=== PATIENT | female | born 1940 | race Caucasian/White ===

== ENCOUNTER → 2018-03-29 | Outpatient (CLI) | payer MEDICARE, BC ==
[2018-03-29 16:38] LABS: Basophils % (A) 1 %; Eosinophils # (A) 0.1 k/uL (0-0.7); Eosinophils % (A) 2 %; HCT 45.4 % (34.0-46.0); HGB 14.7 gm/dL (11.4-16.0); Lymphocytes % (A) 28 %; MCH 29.9 pg (25.0-35.0); MCHC 32.4 g/dL (31.0-37.0); MCV 92.3 fL (80.0-100.0); Mean Platelet Volume 6.7; Monocytes # (A) 0.5 k/uL (0-1.0); Monocytes % (A) 7 %; Neutrophils # (A) 4.3 k/uL (1.3-7.7); Neutrophils % (A) 59 %; Platelet Count 322 k/uL (150-450); RBC 4.91 m/uL (3.80-5.40); RDW 12.4 % (11.5-15.5); WBC 7.2 k/uL (3.8-10.6)
[2018-03-29 16:49] LABS: Albumin 4.2 g/dL (3.5-5.0); Calcium 9.7 mg/dL (8.4-10.2); Potassium 4.2 mmol/L (3.5-5.1); Total Bilirubin 1.1 mg/dL (0.2-1.3); Total Protein 7.1 g/dL (6.3-8.2)
[2018-03-29 17:05] LABS: T4, Free (Free Thyroxine) 1.04 ng/dL (0.78-2.19)
[2018-03-30 02:47] LABS: Hemoglobin A1C 5.7 % (4.0-6.0)
== END | disposition home or self-care (01) ==
LOC: LABWHC1 16:13
PROVIDERS: ATTEND Family Medicine
DX: Z00.00 Encounter for general adult medical examination without abnormal findings (principal); D68.9 Coagulation defect, unspecified; I10 Essential (primary) hypertension; R73.9 Hyperglycemia, unspecified
CPT/HCPCS: 36415; 80053; 80061; 83036; 84439; 84443; 85025; 85379

== ENCOUNTER → 2018-04-12 | Outpatient (CLI) | payer MEDICARE, BC ==
--- NOTE | 2018-04-12 18:31 | US ---
EXAMINATION TYPE: US venous doppler duplex LE DATE OF EXAM: 04/12/2018 6:03 PM COMPARISON: NONE CLINICAL HISTORY: R79.1 Abnormal Coagulation Profile. SIDE PERFORMED: Bilateral TECHNIQUE: The lower extremity deep venous system is examined utilizing real time linear array sonog cooper with graded compression, doppler sonography and color-flow sonography. VESSELS IMAGED: External Iliac Vein (EIV) Common Femoral Vein Deep Femoral Vein Greater Saphenous Vein * Femoral Vein Popliteal Vein Small Saphenous Vein * Proximal Calf Veins (* superficial vessels) Right Leg: Negative for DVT Left Leg: Negative for DVT IMPRESSION: Normal exam. No evidence of deep venous thrombosis in both legs.
== END | disposition home or self-care (01) ==
LOC: RADUSMAIN 17:04
PROVIDERS: ATTEND Family Medicine
DX: R79.1 Abnormal coagulation profile (principal)
CPT/HCPCS: 93970

== ENCOUNTER 2021-12-22 08:34 | Inpatient (IN) | payer MEDICARE, BC ==
[2021-12-22] MEDS ORDERED: KETOROLAC 15 MG/ML 1 ML VIAL IVP STA (08:56)
--- NOTE | 2021-12-22 09:04 | ED ---
General Adult HPI - General Chief complaint: Abdominal Pain Stated complaint: rt sided pain Time Seen by Provider: 12/22/21 08:35 Source: patient, RN notes reviewed, old records reviewed Mode of arrival: ambulatory Limitations: no limitations - History of Present Illness Initial comments: This is a 81-year-old female presents emergency Department with right-sided flank pain. Patient states it started suddenly about noon yesterday and there was some radiation of the pain into her right inguinal area and up along her back but she also states a little bit of it goes up into the lateral chest area. Patient denies any fever chills or cough per patient denies anything that makes it worse or better. Patient denies any anterior chest pain patient denies shortness of breath or difficulty breathing. Patient denies any vomiting or diarrhea. Patient states she was a little bit nauseous but no longer. Patient states the pain is gotten much better since she's been in the ER compared to through the night and yesterday. Patient denies any injury to the area. Patient states touching any of the areas does not make the pain worse. - Related Data Home Medications Medication Instructions Recorded Confirmed Latanoprost [Xalatan 0.005%] 1 drop BOTH EYES HS 12/22/21 12/22/21 Losartan [Cozaar] 50 mg PO DAILY 12/22/21 12/22/21 Metoprolol Tartrate [Lopressor] 50 mg PO BID 12/22/21 12/22/21 Multivitamins, Thera [Multivitamin 1 tab PO DAILY 12/22/21 12/22/21 (formulary)] Vitamin B Complex 1 cap PO MOWEFR 12/22/21 12/22/21 Allergies Allergy/AdvReac Type Severity Reaction Status Date / Time Penicillins Allergy Rash/Hives Verified 12/22/21 11:26 Sulfa (Sulfonamide Allergy Rash/Hives Verified 12/22/21 11:26 Antibiotics) Review of Systems ROS Statement: Those systems with pertinent positive or pertinent negative responses have been documented in the HPI. ROS Other: All systems not noted in ROS Statement are negative. Past Medical History Past Medical History: Hypertension History of Any Multi-Drug Resistant Organisms: None Reported Past Surgical History: No Surgical Hx Reported Past Psychological History: No Psychological Hx Reported Smoking Status: Former smoker Past Alcohol Use History: None Reported Past Drug Use History: None Reported General Exam - General Exam Comments Initial Comments: GENERAL: Patient is well-developed and well-nourished. Patient is nontoxic and well- hydrated and is in mild distress. ENT: Neck is soft and supple. No significant lymphadenopathy is noted. Oropharynx is clear. Moist mucous membranes. Neck has full range of motion without eliciting any pain. EYES: The sclera were anicteric and conjunctiva were pink and moist. Extraocular movements were intact and pupils were equal round and reactive to light. Eyelids were unremarkable. PULMONARY: Unlabored respirations. Good breath sounds bilaterally. No audible rales rhonchi or wheezing was noted. CARDIOVASCULAR: There is a regular rate and rhythm without any murmurs gallops or rubs. ABDOMEN: Soft and nontender with normal bowel sounds. SKIN: Skin is clear with no lesions or rashes and otherwise unremarkable. NEUROLOGIC: Patient is alert and oriented x3. Cranial nerves II through XII are grossly intact. Motor and sensory are also intact. Normal speech, volume and content. Symmetrical smile. MUSCULOSKELETAL: Normal extremities with adequate strength and full range of motion. No lower extremity swelling or edema. No calf tenderness. LYMPHATICS: No significant lymphadenopathy is noted PSYCHIATRIC: Normal psychiatric evaluation. Limitations: no limitations Course Vital Signs 12/22/21 12/22/21 08:36 10:40 Temperature 97 F L Pulse Rate 86 74 Respiratory 16 18 Rate Blood Pressure 136/83 137/88 O2 Sat by Pulse 97 98 Oximetry Medical Decision Making - Medical Decision Making Computed tomography scan shows abdominal lymphadenopathy. There is also an irregular lung lesion. Patient acute versus chronic cholecystitis. I spoke with sounds physician's he agreed to admit the patient admitted the patient wrote admitting orders - Lab Data Result diagrams: 12/22/21 09:30 12/22/21 09:30 Lab Results 12/22/21 12/22/21 12/22/21 Range/Units 09:30 09:30 09:30 WBC 8.5 (3.8-10.6) k/uL RBC 4.72 (3.80-5.40) m/uL Hgb 14.7 (11.4-16.0) gm/dL Hct 44.8 (34.0-46.0) % MCV 95.0 (80.0-100.0) fL MCH 31.2 (25.0-35.0) pg MCHC 32.9 (31.0-37.0) g/dL RDW 11.9 (11.5-15.5) % Plt Count 256 (150-450) k/uL MPV 7.7 Neutrophils % 78 % Lymphocytes % 14 % Monocytes % 5 % Eosinophils % 1 % Basophils % 1 % Neutrophils # 6.6 (1.3-7.7) k/uL Lymphocytes # 1.2 (1.0-4.8) k/uL Monocytes # 0.4 (0-1.0) k/uL Eosinophils # 0.1 (0-0.7) k/uL Basophils # 0.1 (0-0.2) k/uL Sodium 138 (137-145) mmol/L Potassium 3.8 (3.5-5.1) mmol/L Chloride 106 (98-107) mmol/L Carbon Dioxide 25 (22-30) mmol/L Anion Gap 7 mmol/L BUN 8 (7-17) mg/dL Creatinine 0.65 (0.52-1.04) mg/dL Est GFR (CKD-EPI)AfAm >90 (>60 ml/min/1.73 sqM) Est GFR (CKD-EPI)NonAf 83 (>60 ml/min/1.73 sqM) Glucose 176 H (74-99) mg/dL Calcium 8.9 (8.4-10.2) mg/dL Total Bilirubin 1.2 (0.2-1.3) mg/dL AST 25 (14-36) U/L ALT 20 (4-34) U/L Alkaline Phosphatase 103 (38-126) U/L Total Protein 6.7 (6.3-8.2) g/dL Albumin 3.6 (3.5-5.0) g/dL Amylase 67 (30-110) U/L Lipase 456 H (23-300) U/L Urine Color Yellow Urine Appearance Cloudy H (Clear) Urine pH 5.5 (5.0-8.0) Ur Specific Nicholls 1.028 (1.001-1.035) Urine Protein Trace H (Negative) Urine Glucose (UA) Negative (Negative) Urine Ketones 2+ H (Negative) Urine Blood Negative (Negative) Urine Nitrite Negative (Negative) Urine Bilirubin Negative (Negative) Urine Urobilinogen <2.0 (<2.0) mg/dL Ur Leukocyte Esterase Moderate H (Negative) Urine RBC 3 (0-5) /hpf Urine WBC 23 H (0-5) /hpf Ur Squamous Epith Cells 15 H (0-4) /hpf Calcium Oxalate Crystal Many H (None) /hpf Urine Bacteria Moderate H (None) /hpf Hyaline Casts 3 H (0-2) /lpf Urine Mucus Moderate H (None) /hpf Disposition Clinical Impression: Cholecystitis, Abdominal lymphadenopathy, Lung nodule Disposition: ADMITTED IP TO THIS HOSP Referrals: Rakan Alicea DO [Primary Care Provider] - 1-2 days Time of Disposition: 12:16
--- NOTE | 2021-12-22 09:47 | XR ---
EXAMINATION TYPE: XR chest 2V DATE OF EXAM: 12/22/2021 COMPARISON: NONE HISTORY: Shortness of breath TECHNIQUE: Frontal and lateral views of the chest are obtained. FINDINGS: Scattered senescent parenchymal changes noted. Hyperinflation compatible with COPD. No evidence for infiltrate. No evidence for atelectasis. Nodular densities about the right perihilar region. Consider non emergent CT. Heart size is stable. Mediastinal structures are stable and grossly unremarkable. No evidence for hilar prominence. Degenerative changes dorsal spine. IMPRESSION: 1. Nodular densities about the right perihilar region. Consider non emergent CT.
[2021-12-22 09:55] LABS: Basophils # (A) 0.1 k/uL (0-0.2); Basophils % (A) 1 %; Eosinophils # (A) 0.1 k/uL (0-0.7); Eosinophils % (A) 1 %; HCT 44.8 % (34.0-46.0); HGB 14.7 gm/dL (11.4-16.0); Lymphocytes # (A) 1.2 k/uL (1.0-4.8); Lymphocytes % (A) 14 %; MCH 31.2 pg (25.0-35.0); MCHC 32.9 g/dL (31.0-37.0); Mean Platelet Volume 7.7; Monocytes # (A) 0.4 k/uL (0-1.0); Monocytes % (A) 5 %; Neutrophils # (A) 6.6 k/uL (1.3-7.7); Neutrophils % (A) 78 %; Platelet Count 256 k/uL (150-450); RBC 4.72 m/uL (3.80-5.40); RDW 11.9 % (11.5-15.5); WBC 8.5 k/uL (3.8-10.6)
[2021-12-22 10:11] LABS: Appearance,Urine Cloudy (Clear); Bacteria,Urine Moderate /hpf; Bilirubin,Urine Negative (Negative); Blood,Urine Negative (Negative); Calcium Oxalate Crystals,Urine Many /hpf; Color,Urine Yellow; Glucose,Urine (UA) Negative (Negative); Hyaline Casts,Urine 3 /lpf (0-2); Ketones,Urine 2+ (Negative); Leukocyte Esterase,Urine Moderate (Negative); Mucus,Urine Moderate /hpf; Nitrite,Urine Negative (Negative); PH, Urine 5.5 (5.0-8.0); Protein,Urine Trace (Negative); RBC,Urine 3 /hpf (0-5); Specific Gravity,Urine 1.028 (1.001-1.035); Squamous Epithelial Cell,Urine 15 /hpf (0-4); Urobilinogen,Urine <2.0 mg/dL (<2.0); WBC,Urine 23 /hpf (0-5)
[2021-12-22 10:13] LABS: ALT 20 U/L (4-34); AST 25 U/L (14-36); African American GFR (CKD) >90 (>60 ml/min/1.73 sqM); Albumin 3.6 g/dL (3.5-5.0); Alkaline Phosphatase 103 U/L (38-126); Amylase 67 U/L (30-110); Anion Gap 7 mmol/L; Blood Urea Nitrogen 8 mg/dL (7-17); Calcium 8.9 mg/dL (8.4-10.2); Carbon Dioxide 25 mmol/L (22-30); Chloride 106 mmol/L (98-107); Glucose 176 mg/dL (74-99); Lipase 456 U/L (23-300); Non-African American GFR(CKD) 83 (>60 ml/min/1.73 sqM); Potassium 3.8 mmol/L (3.5-5.1); Sodium 138 mmol/L (137-145); Total Bilirubin 1.2 mg/dL (0.2-1.3); Total Protein 6.7 g/dL (6.3-8.2)
--- NOTE | 2021-12-22 11:40 | CT ---
EXAMINATION TYPE: CT abdomen pelvis wo con DATE OF EXAM: 12/22/2021 COMPARISON: No previous CT scan is available for comparison HISTORY: Right sided abdominal pain. CT DLP: 691 mGycm Automated exposure control for dose reduction was used. TECHNIQUE: Helical acquisition of images was performed from the lung bases through the pelvis. FINDINGS: LUNG BASES: 14 mm right posterior basal pulmonary irregular lesion with a central cavitation, incompl etely characterized and could represent inflammatory/infectious process however a neoplastic lesion c annot be excluded. Recommend short-term follow-up CT scan in 4-6 weeks versus further PET scan assess ment. Smaller more inferior pleural-based nodule measuring 6 mm. Suspected cardiomegaly. LIVER/GB: 2.8 cm stone is seen at the gallbladder neck with slight gallbladder wall thickening and alva rrounding fluid yet without significant fat stranding, please correlate clinically for mild acute or chronic cholecystitis. No definite hepatic focal lesion by this nonenhanced CT scan. PANCREAS: Questionable millimetric cyst at the anterior aspect of the distal pancreatic body, subopti catalina assessed by this nonenhanced CT scan. Further enhanced CT assessment can be considered. SPLEEN: No significant abnormality is seen. ADRENALS: No significant abnormality is seen. KIDNEYS: Right mid pole renal cyst without gross suspicious feature, otherwise unremarkable kidneys. No hydroureter or hydronephrosis. FREE AIR: No free air is visualized RETROPERITONEAL ADENOPATHY: None visualized REPRODUCTIVE ORGANS: No significant abnormality is seen URINARY BLADDER: Nondistended. PELVIC ADENOPATHY: None visualized. OSSEOUS STRUCTURES: Dextro scoliosis of the lumbar spine with marked degenerative changes. Osteopeni a. BOWEL: Unremarkable stomach, duodenum and small bowel. Colonic diverticulosis most evident involving the sigmoid colon with thickened wall, please correlate with colonoscopy results. No evidence of acu te colitis or acute diverticulitis. Normal appendix. OTHER: Arterial atherosclerotic calcifications. Prominent upper abdominal lymph nodes most evident se en along the medial aspect of the gastroduodenal junction measuring up to 13 mm. Underlying subtle le krishna at that location can't be excluded. IMPRESSION: 1. Colonic diverticulosis without evidence of acute diverticulitis or acute colitis. 2. Prominent upper abdominal lymph nodes measuring up to 13 mm adjacent to the gastroduodenal junctio n, subtle underlying lesion at that location cannot be excluded. Correlation with upper GI endoscopy or further enhanced CT assessment can be considered. 3. Cholelithiasis with signs suggestive of mild acute versus chronic cholecystitis, please correlate clinically. 4. The described irregular right posterior basal lung lesion is incompletely characterized and could represent an infectious/inflammatory focus however a neoplastic lesion cannot be excluded. Recommend short-term follow-up CT scan versus further PET scan assessment. Other findings and recommendations a s described above.
[2021-12-22] MEDS ORDERED: SODIUM CHLORIDE 0.9% 1,000 ML IV ONE (12:28)
--- NOTE | 2021-12-22 13:48 | P.HPIM ---
History of Present Illness Patient is a 81-year-old female with a past medical history of essential hypertension on TRISTAN inhibitor and beta maggie the presents to the hospital secondary to right upper Karsch abdominal pain. This apparently began a few days ago has been progressively getting worse. Currently doing well examination the pain is well-controlled and she currently rates it a 4 out of 10. She also states that this gets worse with food ingestion however denies any episodes of fever, chills, nausea or vomiting. Denies use of any recreational drugs including tobacco. CBC BMP was reviewed no leukocytosis, lipase noted to be 456 patient is afebrile and normotensive. Computed tomography scan of the abdomen and pelvis was reviewed which shows possible cholelithiasis with signs of mild acute versus chronic cholecystitis. Surgical team was consulted emergency department. Past Medical History Past Medical History: Hypertension History of Any Multi-Drug Resistant Organisms: None Reported Past Surgical History: No Surgical Hx Reported Past Psychological History: No Psychological Hx Reported Smoking Status: Former smoker Past Alcohol Use History: None Reported Past Drug Use History: None Reported Medications and Allergies Home Medications Medication Instructions Recorded Confirmed Type Latanoprost [Xalatan 0.005%] 1 drop BOTH EYES HS 12/22/21 12/22/21 History Losartan [Cozaar] 50 mg PO DAILY 12/22/21 12/22/21 History Metoprolol Tartrate [Lopressor] 50 mg PO BID 12/22/21 12/22/21 History Multivitamins, Thera [Multivitamin 1 tab PO DAILY 12/22/21 12/22/21 History (formulary)] Vitamin B Complex 1 cap PO MOWEFR 12/22/21 12/22/21 History Allergies Allergy/AdvReac Type Severity Reaction Status Date / Time Penicillins Allergy Rash/Hives Verified 12/22/21 11:26 Sulfa (Sulfonamide Allergy Rash/Hives Verified 12/22/21 11:26 Antibiotics) Physical Exam Vitals: Vital Signs Temp Pulse Resp BP Pulse Ox 12/22/21 10:40 74 18 137/88 98 12/22/21 08:36 97 F L 86 16 136/83 97 Intake and Output 12/21/21 12/22/21 12/22/21 22:59 06:59 14:59 Other: Voiding Method Toilet Weight 79.469 kg Gen. patient is awake alert oriented 3 Respiratory no wheezing or rhonchi appreciated Cardiac normal S1/S2 Abdomen negative Ordoñez sign however some tenderness noted on deep palpation Extremity no pitting edema noted Psych normal mood Results CBC & Chem 7: 12/22/21 09:30 12/22/21 09:30 Labs: Abnormal Lab Results - Last 24 Hours (Table) 12/22/21 12/22/21 Range/Units 09:30 09:30 Glucose 176 H (74-99) mg/dL Lipase 456 H (23-300) U/L Urine Appearance Cloudy H (Clear) Urine Protein Trace H (Negative) Urine Ketones 2+ H (Negative) Ur Leukocyte Esterase Moderate H (Negative) Urine WBC 23 H (0-5) /hpf Ur Squamous Epith Cells 15 H (0-4) /hpf Calcium Oxalate Crystal Many H (None) /hpf Urine Bacteria Moderate H (None) /hpf Hyaline Casts 3 H (0-2) /lpf Urine Mucus Moderate H (None) /hpf Assessment and Plan Assessment: Assessment/plan #1 acute intractable abdominal pain secondary to cholecystitis #2 essential hypertension #3 colonic diverticulosis without acute diverticulitis noted Plan: -Admit to medicine for close monitoring -Aspiration/fall precaution since HB 30 -We'll empirically start the patient Rocephin and Flagyl for coverage for acute cholecystitis -Further recommendations from general surgery as read on the computed tomography scan is showing acute versus chronic there is cholelithiasis noted. -Resume home medication, Zofran when necessary for nausea/vomiting -DVT prophylaxis Lovenox. Disposition pending evaluation by surgical team.
[2021-12-22] MEDS ORDERED: ONDANSETRON 4 MG/2 ML VIAL IVP PRN (14:14)
--- NOTE | 2021-12-22 14:17 | P.GSCN ---
History of Present Illness Consult date: 12/22/21 History of present illness: CHIEF COMPLAINT: Abdominal pain HISTORY OF PRESENT ILLNESS: This is a 81-year-old female who presented to the hospital with complaints of right upper quadrant pain that started around noon yesterday. She reports that the pain came on a few hours after she ate eggs and toast that morning. The make the pain radiated into the upper back and right side of her chest. She was having nausea. Denies any vomiting. She was reporting the pain about a 7 out of 10. They gave her pain medicine in the ER. She reports that since then she has had no pain in the right upper quadrant. She denies any fever chills or sweats. Denies any change in bowel habits. She does have a prior history of smoking. She reports smoking for about a total of 15 years. She denies any prior cardiac history and denies any surgical history. Patient had a computed tomography scan abdomen and pelvis with cholelithiasis and signs of mild acute versus chronic cholecystitis. Patient denies any prior history of similar abdominal pains. PAST MEDICAL HISTORY: Hypertension PAST SURGICAL HISTORY: None MEDICATIONS: See list. ALLERGIES: See list. SOCIAL HISTORY: No illicit drug use. REVIEW OF SYSTEMS: CONSTITUTIONAL: Denies fever or chills. HEENT: Denies blurred vision, vision changes, or eye pain. Denies hemoptysis CARDIOVASCULAR: Denies chest pain or pressure. RESPIRATORY: No shortness of breath. GASTROINTESTINAL: See HPI for pertinent findings HEMATOLOGIC: Denies bleeding disorders. GENITOURINARY: Denies any blood in urine or increased urinary frequency. SKIN: Denies pruitis. Denies rash. PHYSICAL EXAM: VITAL SIGNS: Reviewed GENERAL: Well-developed in no acute distress. HEENT: No sclera icterus. Extraocular movements grossly intact. Moist buccal mucosa. Head is atraumatic, normocephalic. No nasal drainage. ABDOMEN: Soft. Nondistended. Nontender NEUROLOGIC: Alert and oriented. Cranial nerves II through XII grossly intact. LABORATORY DATA: WBC is 8.5 hemoglobin 14.7 platelets 256 Sodium is 138 potassium 3.8 creatinine 0.65 Total bilirubin 1.2 AST 25 ALT 20 alk phos 103 Lipase 456 IMAGING: Computed tomography scan abdomen and pelvis demonstrated colonic diverticulosis without evidence of acute diverticulitis or acute colitis. Prominent upper abdominal lymph nodes measuring up to 13 mm adjacent to the gastroduodenal junction subtle underlying lesion at this location cannot be excluded. Correlation with upper GI endoscopy or further enhanced CT assessment can be considered. Cholelithiasis with signs suggestive of mild acute versus chronic cholecystitis. Irregular right posterior basal lung lesion is incompletely characterizing could represent an infectious/inflammatory focus however a neoplastic lesion cannot be excluded. Recommend short term follow-up computed tomography scan versus PET scan assessment. ASSESSMENT: 1. Right upper quadrant abdominal pain with nausea 2. Cholelithiasis with mild acute versus chronic cholecystitis noted on CAT scan 3. Upper abdominal lymph nodes measuring up to 13 mm adjacent to the gastroduodenal junction noted on CAT scan underlying lesion at this location cannot be excluded 4. Irregular right posterior basal lung lesion noted on CAT scan 5. History of nicotine use PLAN: -Patient is tentatively scheduled for a laparoscopic cholecystectomy tomorrow, 12/23/[address] Delgado -Keep patient nothing by mouth after midnight -ok for Clear Liquids Today -Continue antibiotics -Continue IV fluids -Continue antinausea medication as needed -Continue supportive care Thank you for this consultation Physician Pier Runner note has been reviewed by physician. Signing provider agrees with the documented findings, assessment, and plan of care. Past Medical History Past Medical History: Hypertension History of Any Multi-Drug Resistant Organisms: None Reported Past Surgical History: No Surgical Hx Reported Past Psychological History: No Psychological Hx Reported Smoking Status: Former smoker Past Alcohol Use History: None Reported Past Drug Use History: None Reported Medications and Allergies Home Medications Medication Instructions Recorded Confirmed Type Latanoprost [Xalatan 0.005%] 1 drop BOTH EYES HS 12/22/21 12/22/21 History Losartan [Cozaar] 50 mg PO DAILY 12/22/21 12/22/21 History Metoprolol Tartrate [Lopressor] 50 mg PO BID 12/22/21 12/22/21 History Multivitamins, Thera [Multivitamin 1 tab PO DAILY 12/22/21 12/22/21 History (formulary)] Vitamin B Complex 1 cap PO MOWEFR 12/22/21 12/22/21 History Allergies Allergy/AdvReac Type Severity Reaction Status Date / Time Penicillins Allergy Rash/Hives Verified 12/22/21 11:26 Sulfa (Sulfonamide Allergy Rash/Hives Verified 12/22/21 11:26 Antibiotics) Surgical - Exam Vital Signs Temp Pulse Resp BP Pulse Ox 97 F L 86 16 136/83 97 12/22/21 08:36 12/22/21 08:36 12/22/21 08:36 12/22/21 08:36 12/22/21 08:36 Results - Labs 12/22/21 09:30 12/22/21 09:30 Abnormal Lab Results - Last 24 Hours (Table) 12/22/21 12/22/21 Range/Units 09:30 09:30 Glucose 176 H (74-99) mg/dL Lipase 456 H (23-300) U/L Urine Appearance Cloudy H (Clear) Urine Protein Trace H (Negative) Urine Ketones 2+ H (Negative) Ur Leukocyte Esterase Moderate H (Negative) Urine WBC 23 H (0-5) /hpf Ur Squamous Epith Cells 15 H (0-4) /hpf Calcium Oxalate Crystal Many H (None) /hpf Urine Bacteria Moderate H (None) /hpf Hyaline Casts 3 H (0-2) /lpf Urine Mucus Moderate H (None) /hpf Diabetes panel 12/22/21 Range/Units 09:30 Sodium 138 (137-145) mmol/L Potassium 3.8 (3.5-5.1) mmol/L Chloride 106 (98-107) mmol/L Carbon Dioxide 25 (22-30) mmol/L BUN 8 (7-17) mg/dL Creatinine 0.65 (0.52-1.04) mg/dL Glucose 176 H (74-99) mg/dL Calcium 8.9 (8.4-10.2) mg/dL AST 25 (14-36) U/L ALT 20 (4-34) U/L Alkaline Phosphatase 103 (38-126) U/L Total Protein 6.7 (6.3-8.2) g/dL Albumin 3.6 (3.5-5.0) g/dL Calcium panel 12/22/21 Range/Units 09:30 Calcium 8.9 (8.4-10.2) mg/dL Albumin 3.6 (3.5-5.0) g/dL Pituitary panel 12/22/21 Range/Units 09:30 Sodium 138 (137-145) mmol/L Potassium 3.8 (3.5-5.1) mmol/L Chloride 106 (98-107) mmol/L Carbon Dioxide 25 (22-30) mmol/L BUN 8 (7-17) mg/dL Creatinine 0.65 (0.52-1.04) mg/dL Glucose 176 H (74-99) mg/dL Calcium 8.9 (8.4-10.2) mg/dL Adrenal panel 12/22/21 Range/Units 09:30 Sodium 138 (137-145) mmol/L Potassium 3.8 (3.5-5.1) mmol/L Chloride 106 (98-107) mmol/L Carbon Dioxide 25 (22-30) mmol/L BUN 8 (7-17) mg/dL Creatinine 0.65 (0.52-1.04) mg/dL Glucose 176 H (74-99) mg/dL Calcium 8.9 (8.4-10.2) mg/dL Total Bilirubin 1.2 (0.2-1.3) mg/dL AST 25 (14-36) U/L ALT 20 (4-34) U/L Alkaline Phosphatase 103 (38-126) U/L Total Protein 6.7 (6.3-8.2) g/dL Albumin 3.6 (3.5-5.0) g/dL
[2021-12-22] MEDS ORDERED: KETOROLAC 15 MG/ML 1 ML VIAL IVP PRN (14:43)
[2021-12-22] MEDS: metroNIDAZOLE-NS PMX 500 MG in SALINE 1 100ML.BAG IVPB SCH (16:19)
[2021-12-22] MEDS: METOPROLOL TARTRATE 50 MG TAB PO SCH (21:31)
[2021-12-23] MEDS: metroNIDAZOLE-NS PMX 500 MG in SALINE 1 100ML.BAG IVPB SCH ×4 (00:32→23:12)
[2021-12-23] MEDS: METOPROLOL TARTRATE 50 MG TAB PO SCH ×2 (07:11→20:33)
[2021-12-23] MEDS: LOSARTAN 50 MG TAB PO SCH (07:11)
[2021-12-23 09:42] LABS: HCT 40.7 % (37.2-46.3); MCH 30.7 pg (27.0-32.0); MCHC 31.9 g/dL (32.0-37.0); MCV 96.2 fL (80.0-97.0); Mean Platelet Volume 10.5 fL (9.5-12.2); NRBC Per 100 WBC 0 /100 WBCS (0.0-0.0); Platelet Count 235 X 10*3/uL (140-440); RBC 4.23 X 10*6/uL (4.10-5.20); RDW 12.5 % (11.5-14.5); WBC 7.92 X 10*3/uL (4.50-10.00)
[2021-12-23 09:45] LABS: African American GFR (CKD) 93.5 (60.0-200.0); Anion Gap 10.4 mmol/L (10.00-18.00); BUN/Creat Ratio 10.14 Ratio (12.00-20.00); Blood Urea Nitrogen 7.1 mg/dL (9.0-27.0); Calcium 8.8 mg/dL (8.7-10.3); Carbon Dioxide 25.6 mmol/L (20.0-27.5); Non-African American GFR(CKD) 80.7 (60.0-200.0); Potassium 4.5 mmol/L (3.5-5.5)
[2021-12-23] MEDS ORDERED: IV FLUID CONTINUATION 950 ML IV ONE (10:04)
[2021-12-23] MEDS ORDERED: BUPIVACAIN-EPI 0.25%-1:200,000 30 ML VIAL SQ ONE ×2 (10:07→10:40)
[2021-12-23] MEDS ORDERED: DEXAMETHASONE SOD PHOSPHATE 4 MG/ML 1 ML VIAL IVP ONE (10:12)
[2021-12-23] MEDS ORDERED: HYDROmorphone 1 MG/ML 1 ML SYRINGE IVP PRN (11:02)
--- NOTE | 2021-12-23 11:02 | P.OP ---
Date of Procedure: 12/23/21 Preoperative Diagnosis: Cholecystitis Postoperative Diagnosis: Cholecystitis Procedure(s) Performed: Periscopic cholecystectomy Anesthesia: YOJANA Surgeon: Clint Delgado Estimated Blood Loss (ml): 5 Pathology: other (Gallbladder) Condition: stable Disposition: PACU Description of Procedure: The patient was placed on the operating table. The patient received a general endotracheal tube anesthesia. The patients abdomen was prepped and draped in the usual sterile fashion. Through an infraumbilical stab incision, the fascia of the anterior abdominal wall was grasped with a pair of Kochers and then the Veress needle was placed in the peritoneal cavity. Position of the Veress needle was confirmed with positive drop test. The abdomen was then insufflated. After adequate insufflation, the 10 mm trocar was placed in the peritoneal cavity. Following this the laparoscope was placed in the peritoneal cavity. The patient was placed in the head-up, right side up position and then a 5 mm trocar was placed in the right lateral and right subcostal position under direct visualization. A 8 mm trocar was placed in the epigastric position. The gallbladder hydropic. There was a large stone in the neck of the gallbladder. The gallbladder was aspirated and clear The gallbladder was grasped in the fundus and infundibulum. Traction on the gallbladder was placed in the lateral and the cephalad positions. The triangle of Calot was visualized.. The cystic duct was bluntly dissected until the union of the cystic duct and common bile duct was seen. A critical view of safety was achieved. The cystic duct was then divided and sealed with the Harm onic scissors. A PDS Endoloop was then placed throughout the cystic duct stump. The cystic artery divided and sealed with the Harmonic scissors. The gallbladder was then removed from the liver bed using Harmonic scissors. The gallbladder was then extracted through the epigastric port site. Operative field was checked for any bleeding spots and Harmonic scissors was used to coagulate the liver bed. The abdomen was irrigated. The trocars were removed. The skin was closed using interrupted 3-0 Vicryl suture. Dermabond dressing were applied. The patient tolerated the procedure well.
[2021-12-23 11:41] VITALS: BMI 28.3
[2021-12-24 08:04] VITALS: RESP 18
[2021-12-24] MEDS: LOSARTAN 50 MG TAB PO SCH (08:47)
[2021-12-24] MEDS: metroNIDAZOLE-NS PMX 500 MG in SALINE 1 100ML.BAG IVPB SCH (08:47)
[2021-12-24] MEDS: METOPROLOL TARTRATE 50 MG TAB PO SCH (08:47)
[2021-12-24 09:21] LABS: HCT 40.5 % (37.2-46.3); HGB 12.8 g/dL (12.0-15.0); MCH 30.7 pg (27.0-32.0); MCHC 31.6 g/dL (32.0-37.0); MCV 97.1 fL (80.0-97.0); Mean Platelet Volume 10.2 fL (9.5-12.2); NRBC Per 100 WBC 0 /100 WBCS (0.0-0.0); Platelet Count 266 X 10*3/uL (140-440); RBC 4.17 X 10*6/uL (4.10-5.20); RDW 12.9 % (11.5-14.5); WBC 12.12 X 10*3/uL (4.50-10.00)
[2021-12-24] MEDS ORDERED: HYDROmorphone 0.5 MG/0.5 ML SYRINGE IVP PRN (09:23)
[2021-12-24 09:31] LABS: African American GFR (CKD) 76.4 (60.0-200.0); Albumin 3.6 g/dL (3.8-4.9); Albumin/Globulin Ratio 1.43 (1.60-3.17); Anion Gap 9.8 mmol/L (10.00-18.00); BUN/Creat Ratio 10.22 Ratio (12.00-20.00); Blood Urea Nitrogen 8.5 mg/dL (9.0-27.0); Calcium 9.1 mg/dL (8.7-10.3); Globulin 2.5 g/dL (1.6-3.3); Potassium 4.1 mmol/L (3.5-5.5); Total Bilirubin 0.7 mg/dL (0.30-1.20); Total Protein 6.1 g/dL (6.2-8.2)
[2021-12-24] MEDS ORDERED: ACETAMINOPHEN TAB 325 MG TAB PO PRN (09:37)
[2021-12-24] MEDS ORDERED: HYDROcodone/APAP 5-325MG 1 EACH TAB PO PRN (09:37)
[2021-12-24] MEDS ORDERED: HEPARIN SODIUM,PORCINE/PF 5,000 UNIT/0.5 ML SYRINGE SQ SCH (09:45)
--- NOTE | 2021-12-24 11:19 | P.PN ---
Subjective Status post cholecystectomy. Doing well. Denies any respiratory GI complaints. Objective - Vital Signs Vital signs: Vital Signs Temp 98.4 F 12/23/21 12:26 Pulse 71 12/23/21 16:20 Resp 14 12/23/21 13:41 BP 104/57 12/23/21 16:20 Pulse Ox 96 12/23/21 15:20 Intake & Output 12/22/21 12/23/21 12/23/21 18:59 06:59 18:59 Intake Total 290 800 Output Total 20 Balance 290 780 Weight 79.469 kg 79.469 kg Intake: IV 800 Intake, IV Titration 50 Amount cefTRIAXone 1 gm In 50 Sodium Chloride 0.9% 50 ml @ 100 mls/hr IVPB Q24HR FORMERLY [facility], [facility]–1983 Rx#:[id number] Oral 240 Output: Estimated Blood Loss 20 Other: Voiding Method Toilet Toilet # Voids 2 1 - Exam Awake alert oriented 3 Lungs clear to auscultation Cardiovascular regular rhythm and rate Abdomen with a binder soft nontender nondistended Extremities no peripheral edema no cyanosis Head and neck: Anicteric sclerae oropharyngeal mucosa is clear - Labs CBC & Chem 7: 12/24/21 06:51 12/24/21 06:51 Labs: Abnormal Lab Results - Last 24 Hours (Table) 12/23/21 12/23/21 Range/Units 05:33 05:33 MCHC 31.9 L (32.0-37.0) g/dL BUN 7.1 L (9.0-27.0) mg/dL BUN/Creatinine Ratio 10.14 L (12.00-20.00) Ratio Glucose 157 H (70-110) mg/dL Microbiology - Last 24 Hours (Table) 12/22/21 09:30 Urine Culture - Final Urine,Voided Assessment and Plan Plan: #Acute cholecystitis status post cholecystectomy Continue per general surgery recommendations DVT prophylax Antibiotics Encourage out of bed #essential hypertension Adjust medications as needed #UTI Ceftriaxone #colonic diverticulosis without acute diverticulitis noted
--- NOTE | 2021-12-24 11:19 | P.PN ---
Subjective Status post cholecystectomy. Doing well. Denies any respiratory GI complaints. Objective - Vital Signs Vital signs: Vital Signs Temp 97.4 F L 12/24/21 07:00 Pulse 68 12/24/21 07:00 Resp 18 12/24/21 07:00 BP 125/78 12/24/21 07:00 Pulse Ox 94 L 12/24/21 07:00 Intake & Output 12/23/21 12/24/21 12/24/21 18:59 06:59 18:59 Intake Total 918 240 Output Total 20 300 Balance 898 -300 240 Weight 79.469 kg Intake: IV 800 Oral 118 240 Output: Urine 300 Estimated Blood Loss 20 Other: # Voids 1 1 - Exam Awake alert oriented 3 Lungs clear to auscultation Cardiovascular regular rhythm and rate Abdomen with a binder soft nontender nondistended Extremities no peripheral edema no cyanosis Head and neck: Anicteric sclerae oropharyngeal mucosa is clear - Labs CBC & Chem 7: 12/24/21 06:51 12/24/21 06:51 Labs: Abnormal Lab Results - Last 24 Hours (Table) 12/24/21 12/24/21 Range/Units 06:51 06:51 WBC 12.12 H (4.50-10.00) X 10*3/uL MCV 97.1 H (80.0-97.0) fL MCHC 31.6 L (32.0-37.0) g/dL Anion Gap 9.80 L (10.00-18.00) mmol/L BUN 8.5 L (9.0-27.0) mg/dL BUN/Creatinine Ratio 10.22 L (12.00-20.00) Ratio Glucose 155 H (70-110) mg/dL AST 38 H (13-35) U/L Total Protein 6.1 L (6.2-8.2) g/dL Albumin 3.6 L (3.8-4.9) g/dL Albumin/Globulin Ratio 1.43 L (1.60-3.17) g/dL Microbiology - Last 24 Hours (Table) 12/22/21 09:30 Urine Culture - Final Urine,Voided Assessment and Plan Plan: #Acute cholecystitis status post cholecystectomy Continue per general surgery recommendations DVT prophylax Antibiotics Encourage out of bed #essential hypertension Adjust medications as needed #UTI Ceftriaxone #colonic diverticulosis without acute diverticulitis noted
--- NOTE | 2021-12-24 12:17 | P.PN ---
Subjective Progress Note Date: 12/24/21 CHIEF COMPLAINT: Cholecystitis HISTORY OF PRESENT ILLNESS: Patient is status post laparoscopic cholecystectomy. She tolerated surgery well. Her pain is controlled. She is up and ambulating. She's having flatus. She is tolerating regular diet. She is afebrile. White count did go up from 7.92-12.12. Creatinine 0.8 AST 38 ALT 40 118 Patient seen and examined with Dr. reed PHYSICAL EXAM: VITAL SIGNS: Reviewed. GENERAL: Well-developed in no acute distress. HEENT: No sclera icterus. Extraocular movements grossly intact. Moist buccal mucosa. Head is atraumatic, normocephalic. ABDOMEN: Soft. Nondistended. Nontender. Incision sites clean dry and intact NEUROLOGIC: Alert and oriented. Cranial nerves II through XII grossly intact. ASSESSMENT: 1. Cholecystitis status post laparoscopic cholecystectomy PLAN: -Patient is stable from surgical standpoint for discharge when medically cleared -Recommended discharge home with antibiotics -Continue regular diet -Continue pain medication as needed -Encourage patient to ambulate -Incentive spirometer added -DVT prophylaxis subcu heparin Physician Motorcycle Repairer note has been reviewed by physician. Signing provider agrees with the documented findings, assessment, and plan of care. Objective - Vital Signs Vital signs: Vital Signs Temp 97.4 F L 12/24/21 07:00 Pulse 68 12/24/21 07:00 Resp 18 12/24/21 08:00 BP 125/78 12/24/21 07:00 Pulse Ox 94 L 12/24/21 07:00 Intake & Output 12/23/21 12/24/21 12/24/21 18:59 06:59 18:59 Intake Total 918 240 Output Total 20 300 Balance 898 -300 240 Weight 79.469 kg Intake: IV 800 Oral 118 240 Output: Urine 300 Estimated Blood Loss 20 Other: Voiding Method Toilet # Voids 1 1 - Labs CBC & Chem 7: 12/24/21 06:51 12/24/21 06:51 Labs: Abnormal Lab Results - Last 24 Hours (Table) 12/24/21 12/24/21 Range/Units 06:51 06:51 WBC 12.12 H (4.50-10.00) X 10*3/uL MCV 97.1 H (80.0-97.0) fL MCHC 31.6 L (32.0-37.0) g/dL Anion Gap 9.80 L (10.00-18.00) mmol/L BUN 8.5 L (9.0-27.0) mg/dL BUN/Creatinine Ratio 10.22 L (12.00-20.00) Ratio Glucose 155 H (70-110) mg/dL AST 38 H (13-35) U/L Total Protein 6.1 L (6.2-8.2) g/dL Albumin 3.6 L (3.8-4.9) g/dL Albumin/Globulin Ratio 1.43 L (1.60-3.17) g/dL Microbiology - Last 24 Hours (Table) 12/22/21 09:30 Urine Culture - Final Urine,Voided
[2021-12-24 15:00] VITALS: BP 109/70; PULSE 73; TEMP 97.6
--- NOTE | 2021-12-24 16:10 | P.DS ---
Providers Date of admission: 12/24/21 12:39 Attending physician: Angel Luis Chavez MD Consults: 12/22/21 12:28 Consult Physician Urgent Consulting Provider: Clint Delgado Consult Reason/Comments: Acute versus chronic cholecystitis Do you want consulting provider notified?: Yes Primary care physician: Rakan Arbour Hospital Course: Date of admission: 12/22/21 Date of discharge: 12/24/21 Disposition: Patient was cleared for discharge by general surgery. Patient being discharge home on oral antibiotics that surgery has provided. I advised patient to decrease her blood pressure medications for now and monitor her blood pressure medications at home and keep herself hydrated On the day of discharge she was doing well she denied any complaints was on room air. Patient worked with physical therapy and was ambulating independently in the hallways without any difficulties. I discussed plan of care and discharge plan with her daughter's school will take patient home today. Discharge diagnosis Acute cholecystitis Cholelithiasis Status post laparoscopic cholecystectomy 12/22/21 Hypertension UTI: Urine culture usual skin floor Consultants: Gen. surgery Procedures: Laparoscopic cholecystectomy Reason for admission 81-year-old female with history of hypertension admitted with complains of right upper quadrant pain. CT of the abdomen show cholelithiasis and associated acute cholecystitis. Bilirubin liver enzymes alkaline phosphatase and by blood cell count were all normal. Patient was afebrile. Patient was admitted for further evaluation Hospital course Patient was admitted made nothing by mouth started on antibiotics IV fluids. She remained afebrile manometry stable. She underwent laparoscopic cholecystectomy. Postoperatively she does not have any particular pain or co mplaints. Repeat lab showed normal liver enzymes, normal alkaline phosphatase and normal total bilirubin. Patient was cleared for discharge by general surgery and they provided antibiotics for her discharge. She will follow up in their office next week as arranged. Plan - Discharge Summary Discharge Rx Participant: No New Discharge Prescriptions: New Levofloxacin [Levaquin] 500 mg PO DAILY 7 Days #7 tab HYDROcodone/APAP 5-325MG [[place] 5-325] 1 tab PO Q6HR PRN 3 Days #12 tab PRN Reason: Pain Docusate [Colace] 100 mg PO BID #30 capsule Metoprolol Tartrate [Lopressor] 25 mg PO BID tab Continue Multivitamins, Thera [Multivitamin (formulary)] 1 tab PO DAILY Latanoprost [Xalatan 0.005%] 1 drop BOTH EYES HS Vitamin B Complex 1 cap PO MOWEFR Discontinued Losartan [Cozaar] 50 mg PO DAILY Metoprolol Tartrate [Lopressor] 50 mg PO BID Discharge Medication List Latanoprost [Xalatan 0.005%] 1 drop BOTH EYES HS 12/22/21 [History] Multivitamins, Thera [Multivitamin (formulary)] 1 tab PO DAILY 12/22/21 [History] Vitamin B Complex 1 cap PO MOWEFR 12/22/21 [History] Docusate [Colace] 100 mg PO BID #30 capsule 12/24/21 [Rx] HYDROcodone/APAP 5-325MG [[place] 5-325] 1 tab PO Q6HR PRN 3 Days #12 tab 12/24/21 [Rx] Levofloxacin [Levaquin] 500 mg PO DAILY 7 Days #7 tab 12/24/21 [Rx] Metoprolol Tartrate [Lopressor] 25 mg PO BID tab 12/24/21 [Rx] Follow up Appointment(s)/Referral(s): Rakan Alicea DO [Primary Care Provider] - 1-2 days Clint Delgado MD [STAFF PHYSICIAN] - 1 Week Activity/Diet/Wound Care/Special Instructions: No driving while taking [place] No lifting over 10 pounds You may shower. No soaking or tub baths for 2 weeks Very light activity until you are reevaluated at your follow up appointment with your surgeon Discharge Disposition: HOME SELF-CARE Plan of Treatment: Monitor blood pressure and talk to primary care physician about the need to restart blood pressure medications. Would recommend to continue metoprolol half a tab twice a day ( Half usual dose) for now
[2021-12-24] MEDS ORDERED: METOPROLOL TARTRATE 25 MG TAB PO SCH (21:00)
== END 2021-12-24 17:22 | disposition home or self-care (01) | DRG 419 ==
LOC: EC 08:34 → 6NMEDSUR 12:31 → OBSVTOIN 12-24 12:39
PROVIDERS: ADMIT Internal Medicine; ATTEND Internal Medicine
PROC: 0FT44ZZ Resection of Gallbladder, Percutaneous Endoscopic Approach (ICD-10-PCS; principal; 2021-12-23 07:30)
DX: K80.00 Calculus of gallbladder with acute cholecystitis without obstruction (principal); I10 Essential (primary) hypertension; K57.30 Diverticulosis of large intestine without perforation or abscess without bleeding; Z87.891 Personal history of nicotine dependence; Z79.899 Other long term (current) drug therapy; Z88.2 Allergy status to sulfonamides; Z88.0 Allergy status to penicillin
CPT/HCPCS: 36415; 71046; 74176; 80048; 80053; 81001; 82150; 83690; 85025; 85027; 87086; 88304; 96374; 99285

== ENCOUNTER → 2022-05-17 | Emergency (ER) | payer MEDICARE, BC ==
[~2022-05-17] MED LIST: NALOXONE 0.4 MG/ML 1 ML VIAL IV PRN; ONDANSETRON 4 MG/2 ML VIAL IVP PRN; SODIUM CHLORIDE 0.9% 1,000 ML IV STA
--- NOTE | 2022-05-17 12:37 | ED ---
General Adult HPI - General Chief complaint: Recheck/Abnormal Lab/Rx Stated complaint: jaundice Time Seen by Provider: 05/17/22 10:59 Source: patient, family, RN notes reviewed Mode of arrival: ambulatory Limitations: no limitations - History of Present Illness Initial comments: Patient is an 82-year-old female is sent to the emergency room by her primary care provider for acute onset of jaundice which began approximately 2 weeks ago. She first noticed a yellowing of her urine with a slow progression of a yellowing of her skin and eyes. She had a cholecystectomy in December of this year and reports that since that time she has had nausea with food intake without emesis and decreased appetite with weight loss noted. She has intermittent abdominal pain not as severe as when she had her cholelithiasis. She also reports diarrhea that has slowly improved since the time of her cholecystectomy. She denies any chest pain, shortness of breath, vomiting, bloody stools, mucus in her stool, altered mental status, fevers or chills. She has a past medical history significant for hypertension and bilateral cataract/glaucoma. - Related Data Home Medications Medication Instructions Recorded Confirmed Losartan Potassium 50 mg PO DAILY 05/17/22 05/17/22 Previous Rx's Medication Instructions Recorded Metoprolol Tartrate [Lopressor] 25 mg PO BID tab 12/24/21 Allergies Allergy/AdvReac Type Severity Reaction Status Date / Time Penicillins Allergy Rash/Hives Verified 05/17/22 13:00 Sulfa (Sulfonamide Allergy Rash/Hives Verified 05/17/22 13:00 Antibiotics) Review of Systems ROS Statement: Those systems with pertinent positive or pertinent negative responses have been documented in the HPI. ROS Other: All systems not noted in ROS Statement are negative. Past Medical History Past Medical History: Eye Disorder, Hypertension Additional Past Medical History / Comment(s): Bilateral glaucoma and cataracts. History of Any Multi-Drug Resistant Organisms: None Reported Past Surgical History: Tonsillectomy, Tubal Ligation Additional Past Surgical History / Comment(s): D&C Past Anesthesia/Blood Transfusion Reactions: No Reported Reaction Past Psychological History: No Psychological Hx Reported Smoking Status: Former smoker Past Alcohol Use History: None Reported Past Drug Use History: None Reported - Past Family History Father Additional Family Medical History / Comment(s): Father from heart problems Mother Family Medical History: Cancer Additional Family Medical History / Comment(s): Mother is from lung cancer. She was a smoker. General Exam Limitations: no limitations General appearance: alert, in no apparent distress Head exam: Present: atraumatic, normocephalic, normal inspection Eye exam: Present: PERRL, EOMI, scleral icterus. Absent: nystagmus, periorbital swelling ENT exam: Present: normal exam, mucous membranes moist Neck exam: Present: normal inspection. Absent: tenderness, meningismus, lymphadenopathy Respiratory exam: Present: normal lung sounds bilaterally. Absent: respiratory distress, wheezes, rales, rhonchi, stridor Cardiovascular Exam: Present: regular rate, normal rhythm, normal heart sounds. Absent: systolic murmur, diastolic murmur, rubs, gallop, clicks GI/Abdominal exam: Present: soft, tenderness, normal bowel sounds. Absent: distended, guarding, rebound, rigid Extremities exam: Present: normal inspection. Absent: pedal edema, joint swelling Back exam: Present: normal inspection Neurological exam: Present: alert, oriented X3, CN II-XII intact Psychiatric exam: Present: normal affect, normal mood Skin exam: Present: warm, dry. Absent: normal color (Jaundice) Course Vital Signs 05/17/22 05/17/22 05/17/22 09:20 13:18 17:50 Temperature 97.5 F L 98.8 F 97.8 F Pulse Rate 102 H 92 84 Respiratory 20 17 16 Rate Blood Pressure 114/70 124/85 131/77 O2 Sat by Pulse 99 96 97 Oximetry Medical Decision Making - Medical Decision Making 82-year-old female presenting to the emergency room at the direction of her primary care provider for acute onset of jaundice. Will check CBC, CMP, amylase, lipase, ammonia level along with CT of the abdomen. Concern for common bile duct obstruction given cholecystectomy in December of this year. Denies any analgesic or anti-medics needs at this time. Will monitor. Bilirubin elevated at 14.1 liver enzymes elevated but less than 1000. Ammonia level normal. Alk phos elevated. Lactic acid. No evidence of infection with normal leukocyte count. Computed tomography scan reveals new mild to moderate central intrahepatic and extrahepatic biliary dilatation along with pancreatic ductal dilatation no obvious mass but strong concern for neoplasm in the region. Extra hepatic biliary dilatation up to 15 mm case discussed with Dr. Alfred and Dr. Crowell covering for Dr. Alicea's admissions and GI and recommended transfer to [facility] for services including ERCP with stenting and endoscopic ultrasound. Mild dehydration noted and IV fluids started and tolerated well. Will continue to monitor. Case discussed with Dr. Hiram Rich at [facility] who is accepting of admission to Gen. medical floor with advanced GI consult however bed status is unknown and she will need to wait for admission. Will consult [facility] physicians for medical management for patient to continue to remain in the emergency room until a bed becomes available at [facility]. Patient to remain here in the emergency room until bed available. Will call [facility] for medical management while in the emergency room. Diet orders and medical consult medical management consult placed. Case discussed with Dr. Castro. - Lab Data Result diagrams: 05/17/22 12:35 05/17/22 12:35 Lab Results 05/17/22 05/17/22 05/17/22 Range/Units 12:35 12:35 12:35 WBC 7.4 (3.8-10.6) k/uL RBC 4.72 (3.80-5.40) m/uL Hgb 14.7 (11.4-16.0) gm/dL Hct 46.8 H (34.0-46.0) % MCV 99.2 (80.0-100.0) fL MCH 31.1 (25.0-35.0) pg MCHC 31.4 (31.0-37.0) g/dL RDW 13.3 (11.5-15.5) % Plt Count 340 (150-450) k/uL MPV 8.1 Neutrophils % 70 % Lymphocytes % 19 % Monocytes % 6 % Eosinophils % 1 % Basophils % 1 % Neutrophils # 5.2 (1.3-7.7) k/uL Lymphocytes # 1.4 (1.0-4.8) k/uL Monocytes # 0.4 (0-1.0) k/uL Eosinophils # 0.1 (0-0.7) k/uL Basophils # 0.1 (0-0.2) k/uL Hypochromasia Slight PT 11.5 (9.0-12.0) sec INR 1.1 (<1.2) Sodium 139 (137-145) mmol/L Potassium 3.9 (3.5-5.1) mmol/L Chloride 102 (98-107) mmol/L Carbon Dioxide 22 (22-30) mmol/L Anion Gap 15 mmol/L BUN 21 H (7-17) mg/dL Creatinine 1.32 H (0.52-1.04) mg/dL Est GFR (CKD-EPI)AfAm 43 (>60 ml/min/1.73 sqM) Est GFR (CKD-EPI)NonAf 37 (>60 ml/min/1.73 sqM) Glucose 144 H (74-99) mg/dL Calcium 9.2 (8.4-10.2) mg/dL Total Bilirubin 14.1 H (0.2-1.3) mg/dL AST 221 H (14-36) U/L ALT 295 H (4-34) U/L Alkaline Phosphatase 530 H (38-126) U/L Ammonia (<30) umol/L Lactate Dehydrogenase 731 H (313-618) U/L Total Protein 7.4 (6.3-8.2) g/dL Albumin 4.1 (3.5-5.0) g/dL Amylase 48 (30-110) U/L Lipase 91 (23-300) U/L 05/17/22 Range/Units 12:35 WBC (3.8-10.6) k/uL RBC (3.80-5.40) m/uL Hgb (11.4-16.0) gm/dL Hct (34.0-46.0) % MCV (80.0-100.0) fL MCH (25.0-35.0) pg MCHC (31.0-37.0) g/dL RDW (11.5-15.5) % Plt Count (150-450) k/uL MPV Neutrophils % % Lymphocytes % % Monocytes % % Eosinophils % % Basophils % % Neutrophils # (1.3-7.7) k/uL Lymphocytes # (1.0-4.8) k/uL Monocytes # (0-1.0) k/uL Eosinophils # (0-0.7) k/uL Basophils # (0-0.2) k/uL Hypochromasia PT (9.0-12.0) sec INR (<1.2) Sodium (137-145) mmol/L Potassium (3.5-5.1) mmol/L Chloride (98-107) mmol/L Carbon Dioxide (22-30) mmol/L Anion Gap mmol/L BUN (7-17) mg/dL Creatinine (0.52-1.04) mg/dL Est GFR (CKD-EPI)AfAm (>60 ml/min/1.73 sqM) Est GFR (CKD-EPI)NonAf (>60 ml/min/1.73 sqM) Glucose (74-99) mg/dL Calcium (8.4-10.2) mg/dL Total Bilirubin (0.2-1.3) mg/dL AST (14-36) U/L ALT (4-34) U/L Alkaline Phosphatase (38-126) U/L Ammonia <9 (<30) umol/L Lactate Dehydrogenase (313-618) U/L Total Protein (6.3-8.2) g/dL Albumin (3.5-5.0) g/dL Amylase (30-110) U/L Lipase (23-300) U/L - Radiology Data Radiology results: report reviewed, image reviewed Ct abdomen pelvis with contrast Disposition Clinical Impression: Hyperbilirubinemia Disposition: OTHER INSTITUTION NOT DEFINED Condition: Stable Is patient prescribed a controlled substance at d/c from ED?: No Referrals: Rakan Alicea DO [Primary Care Provider] - 1-2 days Time of Disposition: 16:24 - Out of Hospital Transfer - Req. Specs Out of Hospital Transfer - Requested Specifics: Other Non-Acute (F [facility] Main)
[2022-05-17 12:59] LABS: Basophils # (A) 0.1 k/uL (0-0.2); Basophils % (A) 1 %; Eosinophils # (A) 0.1 k/uL (0-0.7); Eosinophils % (A) 1 %; HCT 46.8 % (34.0-46.0); HGB 14.7 gm/dL (11.4-16.0); Hypochromasia Slight; Lymphocytes # (A) 1.4 k/uL (1.0-4.8); Lymphocytes % (A) 19 %; MCH 31.1 pg (25.0-35.0); MCHC 31.4 g/dL (31.0-37.0); MCV 99.2 fL (80.0-100.0); Mean Platelet Volume 8.1; Monocytes # (A) 0.4 k/uL (0-1.0); Monocytes % (A) 6 %; Neutrophils # (A) 5.2 k/uL (1.3-7.7); Neutrophils % (A) 70 %; Platelet Count 340 k/uL (150-450); RBC 4.72 m/uL (3.80-5.40); RDW 13.3 % (11.5-15.5); WBC 7.4 k/uL (3.8-10.6)
[2022-05-17 13:09] LABS: Albumin 4.1 g/dL (3.5-5.0); Calcium 9.2 mg/dL (8.4-10.2); Potassium 3.9 mmol/L (3.5-5.1); Total Bilirubin 14.1 mg/dL (0.2-1.3); Total Protein 7.4 g/dL (6.3-8.2)
[2022-05-17 13:17] LABS: INR 1.1 (<1.2); Prothrombin Time 11.5 sec (9.0-12.0)
--- NOTE | 2022-05-17 14:10 | CT ---
EXAMINATION TYPE: CT abdomen pelvis w con DATE OF EXAM: 05/17/2022 HISTORY: PAIN and jaundice. CT DLP: 759.8mGycm Automated Exposure Control for Dose Reduction was Utilized. CONTRAST: CT scan of the abdomen and pelvis is performed without oral but with IV Contrast, patient injected wi th 80 mL of Isovue 300. COMPARISON: Prior CT abdomen and pelvis December 22, 2021 FINDINGS: LUNG BASES: More prominent 2.1 cm posterior right basilar groundglass nodules and/or nodular consolid ation axial image 1. There are additional scattered bilateral smaller nodules and/or nodular consolid ation increased in size and number from prior CT. LIVER/GB: Interval cholecystectomy. There is new Mild to moderate central intrahepatic and extrahepat ic biliary dilatation up to 15 mm kanchan hepatis coronal image 39 with abrupt cut off in the pancreati c head coronal image 41 noted on current study. No obvious mass at this level. There is visualization of nondilated distal common bile duct near ampulla coronal image 41. Short segment near 1.0 cm on co sarah image 41 shows nonvisualized duct without obvious mass. PANCREAS: Focal atrophy and ductal dilatation in the distal body and tail of pancreas axial image 23 for reference. Focal dilated duct in the mid body near axial image 26. Reference is more prominent fr om prior CT. Heterogeneity in the pancreatic head coronal image 38 near pancreatic duct cut off is no jamal. Proximal pancreatic duct visualized and not dilated near the duodenal ampulla coronal image 41. SPLEEN: No significant abnormality is seen. ADRENALS: Slight nodular thickening left adrenal gland redemonstrated favored benign. KIDNEYS: Symmetric cortical medullary uptake excretion without hydronephrosis seen bilaterally. Occas ional benign thin-walled cysts scattered throughout the right kidney is present. BOWEL: Suboptimal evaluation without enteric contrast. Small-sized hiatal hernia redemonstrated. No s uspicious small or large bowel dilatation. Few diverticula in the left colon. More prominent divertic sonny in the sigmoid colon. No convincing CT evidence for acute diverticulitis. UTERUS/ADNEXA: Anteverted uterus. Curvilinear Calcification in right ovary axial image 70 redemonstra jamal. No adnexal masses. LYMPH NODES: No greater than 1cm abdominal or pelvic lymph nodes are appreciated. OSSEOUS STRUCTURES: Dextroconvex scoliosis centered at L2-L3 level is redemonstrated. Moderate multil evel disc space narrowing and vacuum disc phenomenon centered at the L2-L3 and L3-L4 levels. Moderate to severe disc space narrowing and vacuum disc phenomenon at right L5 L6 level. Transitional type L6 vertebrae redemonstrated. Multilevel facet arthropathy in the mid to lower lumbar spine. OTHER: No significant additional abnormality is seen. IMPRESSION: New mild to moderate central intrahepatic and extra hepatic biliary dilatation even accou nting for interval cholecystectomy. New areas of pancreatic ductal dilatation noted. No obvious mass but abrupt cut off of both structures raises strong concern for neoplasm in region of the pancreatic head and further investigation with endoscopic ultrasound is advised to further evaluate and/or possi justino sample. Increasing size and number of nodular opacities in the bilateral lower lungs could reflec t metastatic disease versus septic emboli in the appropriate clinical setting. Correlate clinically. Former is favored.
[2022-05-17] MEDS: SODIUM CHLORIDE 0.9% 1,000 ML IV SCH ×2 (15:12→23:50)
--- NOTE | 2022-05-17 15:30 | P.CONS ---
History of Present Illness - Reason for Consult Obstructive jaundice - History of Present Illness Patient ability to 82-year-old female with history of cholecystectomy month of December came in with complaints of jaundice. Patient had a computed tomography scan of the abdomen which showed intrahepatic and x-ray hepatic biliary ductal dilatation and pancreatic ductal dilatation concerning for either pancreatic cancer or cholangiocarcinoma. Patient also has nodular lesions in the lung. Patient will need probably ERCP with stent placement along with endoscopic ultrasound. Discussed with gastroneurologist patient will be transferred to higher level facility for endoscopic ultrasound and further care. REVIEW OF SYSTEMS: CONSTITUTIONAL: No fever, no malaise, no fatigue. HEENT: No recent visual problems or hearing problems. Denied any sore throat. CARDIOVASCULAR: No chest pain, orthopnea, PND, no palpitations, no syncope. PULMONARY: No shortness of breath, no cough, no hemoptysis. GASTROINTESTINAL: No diarrhea, no nausea, no vomiting, no abdominal pain. NEUROLOGICAL: No headaches, no weakness, no numbness. HEMATOLOGICAL: Denies any bleeding or petechiae. GENITOURINARY: Denies any burning micturition, frequency, or urgency. MUSCULOSKELETAL/RHEUMATOLOGICAL: Denies any joint pain, swelling, or any muscle pain. ENDOCRINE: Denies any polyuria or polydipsia. The rest of the 14-point review of systems is negative. PHYSICAL EXAMINATION: GENERAL: The patient is alert and oriented x3, not in any acute distress. Well developed, well nourished. HEENT: Pupils are round and equally reacting to light. EOMI. patient has scleral icterus. No conjunctival pallor. Normocephalic, atraumatic. No pharyngeal erythema. No thyromegaly. CARDIOVASCULAR: S1 and S2 present. No murmurs, rubs, or gallops. PULMONARY: Chest is clear to auscultation, no wheezing or crackles. ABDOMEN: Soft, nontender, nondistended, normoactive bowel sounds. No palpable organomegaly. MUSCULOSKELETAL: No joint swelling or deformity. EXTREMITIES: No cyanosis, clubbing, or pedal edema. NEUROLOGICAL: Gross neurological examination did not reveal any focal deficits. SKIN: No rashes. Assessment and plan -Obstructive jaundice: Most probably malignancy, will need endoscopic ultrasound and ERCP with stent placement. -Acute renal failure most probably prerenal azotemia -Hypertension It was recommended the patient transferred to higher level facility for above- mentioned reasons. Past Medical History Past Medical History: Eye Disorder, Hypertension Additional Past Medical History / Comment(s): Bilateral glaucoma and cataracts. History of Any Multi-Drug Resistant Organisms: None Reported Past Surgical History: Tonsillectomy, Tubal Ligation Additional Past Surgical History / Comment(s): D&C Past Anesthesia/Blood Transfusion Reactions: No Reported Reaction Past Psychological History: No Psychological Hx Reported Smoking Status: Former smoker Past Alcohol Use History: None Reported Past Drug Use History: None Reported - Past Family History Father Additional Family Medical History / Comment(s): Father from heart problems Mother Family Medical History: Cancer Additional Family Medical History / Comment(s): Mother is from lung cancer. She was a smoker. Medications and Allergies Home Medications Medication Instructions Recorded Confirmed Type Metoprolol Tartrate [Lopressor] 25 mg PO BID tab 12/24/21 05/17/22 Rx Losartan Potassium 50 mg PO DAILY 05/17/22 05/17/22 History Allergies Allergy/AdvReac Type Severity Reaction Status Date / Time Penicillins Allergy Rash/Hives Verified 05/17/22 13:00 Sulfa (Sulfonamide Allergy Rash/Hives Verified 05/17/22 13:00 Antibiotics) Physical Exam Vitals: Vital Signs Temp Pulse Resp BP Pulse Ox 05/17/22 13:18 98.8 F 92 17 124/85 96 05/17/22 09:20 97.5 F L 102 H 20 114/70 99 Intake and Output 05/17/22 05/17/22 05/17/22 06:59 14:59 22:59 Other: Weight 63.957 kg Results CBC & Chem 7: 05/17/22 12:35 05/17/22 12:35 Labs: Abnormal Lab Results - Last 24 Hours (Table) 05/17/22 05/17/22 Range/Units 12:35 12:35 Hct 46.8 H (34.0-46.0) % BUN 21 H (7-17) mg/dL Creatinine 1.32 H (0.52-1.04) mg/dL Glucose 144 H (74-99) mg/dL Total Bilirubin 14.1 H (0.2-1.3) mg/dL AST 221 H (14-36) U/L ALT 295 H (4-34) U/L Alkaline Phosphatase 530 H (38-126) U/L Lactate Dehydrogenase 731 H (313-618) U/L
[2022-05-18] MEDS: SODIUM CHLORIDE 0.9% 1,000 ML IV SCH ×3 (05:28→18:50)
[2022-05-18 05:29] VITALS: RESP 16
[2022-05-18 18:54] VITALS: TEMP 97.8
[2022-05-19] MEDS: SODIUM CHLORIDE 0.9% 1,000 ML IV SCH (03:36)
[2022-05-19 06:44] VITALS: BP 137/83; PULSE 82
== END | disposition other institution (70) ==
LOC: EC 08:58
DX: E80.6 Other disorders of bilirubin metabolism (principal); I10 Essential (primary) hypertension; Z87.891 Personal history of nicotine dependence; Z88.0 Allergy status to penicillin; Z88.2 Allergy status to sulfonamides
CPT/HCPCS: 36415; 80053; 82140; 82150; 83615; 83690; 85025; 85610; 74177; 96360; 99285; Q9967

== ENCOUNTER → 2022-08-03 | Outpatient (CLI) | payer MEDICARE, BC ==
--- NOTE | 2022-08-03 15:54 | US ---
EXAMINATION TYPE: US venous doppler duplex LE LT DATE OF EXAM: 08/03/2022 3:35 PM COMPARISON: NONE CLINICAL HISTORY: [id number] PAIN IN LEFT LOWER LIMB R22.42 SWELLING OF LEFT LOWER. Edema SIDE PERFORMED: Left TECHNIQUE: The lower extremity deep venous system is examined utilizing real time linear array sonog cooper with graded compression, doppler sonography and color-flow sonography. VESSELS IMAGED: Common Femoral Vein Deep Femoral Vein Greater Saphenous Vein * Femoral Vein Popliteal Vein Small Saphenous Vein * Proximal Calf Veins (* superficial vessels) Left Leg: Negative for DVT IMPRESSION: No evidence for DVT.
== END | disposition home or self-care (01) ==
LOC: RADUSWWP 15:06
PROVIDERS: ATTEND Internal Medicine Hematology & Oncology
DX: M79.662 Pain in left lower leg (principal); R22.42 Localized swelling, mass and lump, left lower limb

== ENCOUNTER 2022-09-30 11:57 | Emergency (ER) | payer MEDICARE, BC ==
[2022-09-30 12:01] VITALS: TEMP 98.1
--- NOTE | 2022-09-30 13:02 | ED ---
Extremity Problem HPI - General Chief complaint: Extremity Injury, Lower Stated complaint: edema Time Seen by Provider: 09/30/22 12:36 Source: patient, family, RN notes reviewed Mode of arrival: ambulatory Limitations: no limitations - History of Present Illness Initial comments: This is an 82-year-old female who presents to the emergency department for left leg swelling. States that she usually has swelling in the left foot, however she is now having swelling going all the way up the left leg. It has gotten worse over the last week. Denies any injuries. She has minor associated pain in the lower part of the leg. She has had similar problems in the past, and this has been attributed to her chemotherapy for the pancreatic cancer. She's not taking any blood thinners or diuretics. Additionally, she states that when she went to use the restroom today, she noticed a white substance in her urine, which she has never seen before. Denies any burning with urination or lower abdominal pain. Denies any fevers, chills, sore throat, cough, dyspnea, chest pain, palpitations, abdominal pain, nausea, vomiting, diarrhea, back pain, or h eadaches. MD Complaint: extremity swelling Onset/Timin -: week(s) Location: left, lower extremity - Related Data Home Medications Medication Instructions Recorded Confirmed Metoprolol Tartrate [Lopressor] 12.5 mg PO DAILY 09/30/22 09/30/22 Vitamin B-12(Unknown Dose) 1 tab PO DAILY 09/30/22 09/30/22 Vitamin B-6(Unknown Dose) 1 tab PO DAILY 09/30/22 09/30/22 Previous Rx's Medication Instructions Recorded Apixaban [Eliquis Starter Pack 5 - 10 mg PO DIRECTED 30 Days 09/30/22 (for VTE)] #1 each Allergies Allergy/AdvReac Type Severity Reaction Status Date / Time Penicillins Allergy Rash/Hives Verified 09/30/22 15:33 Sulfa (Sulfonamide Allergy Rash/Hives Verified 09/30/22 15:33 Antibiotics) Review of Systems ROS Statement: Those systems with pertinent positive or pertinent negative responses have been documented in the HPI. ROS Other: All systems not noted in ROS Statement are negative. Past Medical History Past Medical History: Eye Disorder, Hypertension Additional Past Medical History / Comment(s): Bilateral glaucoma and cataracts.Stage 4 pancreatic CA. History of Any Multi-Drug Resistant Organisms: None Reported Past Surgical History: Tonsillectomy, Tubal Ligation Additional Past Surgical History / Comment(s): D&C Past Anesthesia/Blood Transfusion Reactions: No Reported Reaction Past Psychological History: No Psychological Hx Reported Smoking Status: Former smoker Past Alcohol Use History: None Reported Past Drug Use History: None Reported - Past Family History Father Additional Family Medical History / Comment(s): Father from heart problems Mother Family Medical History: Cancer Additional Family Medical History / Comment(s): Mother is from lung cancer. She was a smoker. General Exam Limitations: no limitations General appearance: alert, in no apparent distress Head exam: Present: atraumatic, normocephalic, normal inspection Respiratory exam: Present: normal lung sounds bilaterally. Absent: respiratory distress, wheezes, rales, rhonchi, stridor Cardiovascular Exam: Present: regular rate, normal rhythm, normal heart sounds. Absent: systolic murmur, diastolic murmur, rubs, gallop, clicks Extremities exam: Present: other (3+ pitting edema to the left lower extremity no overlying erythema, ecchymosis, increased heat, or wounds.) Neurological exam: Present: alert, oriented X3, CN II-XII intact Psychiatric exam: Present: normal affect, normal mood Skin exam: Present: warm, dry, intact Course Vital Signs 09/30/22 09/30/22 11:58 15:48 Temperature 98.1 F Pulse Rate 92 90 Respiratory 20 18 Rate Blood Pressure 104/71 110/70 O2 Sat by Pulse 99 99 Oximetry Medical Decision Making - Medical Decision Making This is an 82-year-old female who presents to the emergency department for left lower extremity swelling. Was pt. sent in by a medical professional or institution? @ -No Did you speak to anyone other than the patient for history? @ -Her daughter Did you review nursing and triage notes? @ -Yes, and I agree, it is accurate with regards to the patient's symptoms. Were old charts reviewed? @ -No Differential Diagnosis? @ -Differential Leg Swelling: DVT, lymphadema, medication side effects, cellulitis, CHF, dependent edema, this is not meant to be an all-inclusive list. X-rays interpreted by me (1pt min.)? @ -X-ray of the left lower extremity obtained. My interpretation identifies no acute fractures, dislocations, or soft tissue swelling. What testing was considered but not performed? (CT, X-rays, U/S, labs)? Why? @ -I ordered a UA for the urinary changes, however the patient forgot to provide a sample when she used the restroom, and could not provide another one prior to discharge. What meds were considered but not given? Why? @ -None Did you discuss the management of the patient with other professionals? @ -No Did you reconcile home meds? @ -No Was smoking cessation discussed for >3mins.? @ -No Was critical care preformed (if so, how long)? @ -No Were there social determinants of health that impacted care today? How? (Homelessness, low income, unemployed, alcoholism, drug addiction, transportat ion, low edu. Level, literacy, decrease access to med. care, [facility], rehab)? @ -No Was there de-escalation of care discussed even if they declined? (Discuss DNR or withdrawal of care, Hospice)? @ -No What co-morbidities impacted this encounter? (DM, HTN, Smoking, COPD, CAD, Cancer, CVA, Hep., AIDS, mental health diagnosis, sleep apnea, morbid obesity)? @ -Pancreatic cancer Was patient admitted / discharged? @ -Discharged. X-ray and ultrasound of the left lower extremity obtained. My interpretation of the x-ray of the left lower extremity identifies no acute findings. Ultrasound does reveal a proximal DVT. Findings discussed with the patient. She has no evidence of phlegmasia on physical exam. Prescription for Eliquis starter pack provided with dosing instructions reviewed. She was given a dose of Eliquis in the emergency department before discharge. She was also given information for follow-up with vascular surgery. Advised she contact her primary care provider and vascular surgery for a follow-up appointment to discuss if any additional imaging or testing is indicated and if the Eliquis will need to be taken longer than the starter pack provides. She was advised of the risks for blood clots to travel elsewhere the body, such as in the lungs, which can become a life-threatening issue. Advised that if she were to develop any chest pain, shortness of breath, or worsening symptoms, she should return to the emergency department immediately. Undiagnosed new problem with uncertain prognosis? @ -None Drug Therapy requiring intensive monitoring for toxicity (Heparin, Nitro, Insulin, Cardizem)? @ -None Were any procedures done? @ -None Diagnosis/symptom? @ -DVT left leg Acute, or Chronic, or Acute on Chronic? @ -Acute Uncomplicated (without systemic symptoms) or Complicated (systemic symptoms)? @ -Uncomplicated Side effects of treatment? @ -None Exacerbation, Progression, or Severe Exacerbation] @ -Not applicable Poses a threat to life or bodily function? @ -Yes, can become a life threatening issue if the clots were to travel and cause a PE. Return precautions reviewed in depth, the patient is instructed to return to the emergency department with any new, worsening, or concerning symptoms. Patient verbalized understanding. This case was discussed in detail with the attending ED physician, Dr. Da Silva. Presentation, findings, and treatment plan discussed in detail as well. - Radiology Data Radiology results: report reviewed, image reviewed Disposition Clinical Impression: Left femoral vein DVT Disposition: HOME SELF-CARE Instructions (If sedation given, give patient instructions): Deep Vein Thrombosis (ED) Additional Instructions: Return to the emergency department with any new, worsening, or concerning symptoms, especially chest pain or shortness of breath. You'll take the Eliquis as prescribed per the instructions on the starter pack. You'll need to follow up with your primary care provider before finishing this to discuss if this needs to be taken any longer. You should also contact the vascular specialist as listed below for reevaluation of the blood clot. Prescriptions: Apixaban [Eliquis Starter Pack (for VTE)] 5 - 10 mg PO DIRECTED 30 Days #1 each Is patient prescribed a controlled substance at d/c from ED?: No Referrals: Guero Parikh MD [Primary Care Provider] - 1-2 days Rakan Alicea DO [STAFF PHYSICIAN] - 1-2 days Celestina Mijares DO [STAFF PHYSICIAN] - 1-2 days
--- NOTE | 2022-09-30 13:33 | XR ---
EXAMINATION TYPE: XR tibia fibula LT DATE OF EXAM: 09/30/2022 COMPARISON: None HISTORY: Leg swelling TECHNIQUE: 2 view left tibia and fibula FINDINGS: No acute fracture or dislocation is evident. Soft tissues appear normal. Follow up exams ca n be performed 7-10 days with acute trauma for continued pain. IMPRESSION: 1. No acute osseous abnormality left tibia and fibula
--- NOTE | 2022-09-30 14:03 | US ---
EXAMINATION TYPE: US venous doppler duplex LE LT DATE OF EXAM: 09/30/2022 1:48 PM COMPARISON: 08/03/2022 CLINICAL HISTORY: Left leg swelling. Chemo patient. Left leg swelling. SIDE PERFORMED: Left TECHNIQUE: The lower extremity deep venous system is examined utilizing real time linear array sonog cooper with graded compression, doppler sonography and color-flow sonography. VESSELS IMAGED: Common Femoral Vein Deep Femoral Vein Greater Saphenous Vein * Femoral Vein Popliteal Vein Small Saphenous Vein * Proximal Calf Veins (* superficial vessels) Left Leg: Positive for DVT with no flow visualized and noncompressible from left EIV to proximal agusto f veins ER was notified of findings. IMPRESSION: 1. Deep venous thrombosis left lower extremity from the external iliac vein through the femoral vein and proximal trifurcation vessels.
[2022-09-30] MEDS ORDERED: APIXABAN 5 MG TAB PO SCH ×3 (15:15→21:00)
[2022-09-30] MEDS ORDERED: APIXABAN 5 MG TAB PO ONE (15:16)
[2022-09-30 15:49] VITALS: BP 110/70; PULSE 90; RESP 18
== END 2022-09-30 15:48 | disposition home or self-care (01) ==
LOC: EC 11:57
DX: I82.412 Acute embolism and thrombosis of left femoral vein (principal); I10 Essential (primary) hypertension; Z87.891 Personal history of nicotine dependence; Z79.899 Other long term (current) drug therapy; Z88.0 Allergy status to penicillin; Z88.2 Allergy status to sulfonamides
CPT/HCPCS: 99283

== ENCOUNTER → 2022-10-06 | Outpatient (CLI) | payer MEDICARE, BC ==
[2022-10-06 13:07] LABS: African American GFR (CKD) >90 (>60 ml/min/1.73 sqM); Blood Urea Nitrogen 16 mg/dL (7-17); Non-African American GFR(CKD) 87 (>60 ml/min/1.73 sqM)
--- NOTE | 2022-10-06 15:08 | CT ---
EXAMINATION TYPE: CT ChestAbdPelvis w con DATE OF EXAM: 10/06/2022 COMPARISON: Prior CT abdomen and pelvis May 17, 2022 and older study in December 22, 2021 HISTORY: Hx pancreatic ca CT DLP: 981 mGycm. Automated Exposure Control for Dose Reduction was Utilized. CONTRAST: CT scan of the thorax, abdomen and pelvis is performed with oral and with IV Contrast, patient inject ed with 70 mL of Isovue 300. FINDINGS: LUNGS: Multifocal groundglass opacities and groundglass nodularity in the periphery of the bilateral lungs is seen greatest involving the lower lungs. No pleural effusion or pneumothorax is present bila terally. MEDIASTINUM: There are no greater than 1 cm hilar or mediastinal lymph nodes. No cardiomegaly or pe ricardial effusion is seen. There is greater than 1.0 cm hypodense right thyroid nodule coronal imag e 36, follow-up thyroid ultrasound is advised to further evaluate and characterize if this is not kno wn finding. LIVER/GB: Cholecystectomy clips are redemonstrated. There is new metallic internal biliary stent and new pneumobilia. There is improved intrahepatic biliary dilatation. Area in the proximal portion of t he stent is identified with lack of air distal portion noted. There is 1.3 x 1.0 cm hypodense area lateral left hepatic lobe axial image 52, too small to definitiv kristina characterize. Mass lesion at this level cannot be excluded PANCREAS: Focal atrophy in the pancreatic tail is more prominent from prior. Focal lobulated low dens ity area possible rmass in the mid to distal body axial image 53 measuring roughly 2.8 x 2.1 cm is alva spected as there is focal ductal dilatation seen just distal to this Heterogeneity in the pancreatic head is redemonstrated, some focal ductal dilatation in the proximal body extending towards the head is seen best on coronal image 38. Normal-appearing pancreas and the inferior pancreatic head coronal image 41 is redemonstrated. SPLEEN: No significant abnormality is seen. ADRENALS: Slight nodular thickening left adrenal gland redemonstrated favored benign. KIDNEYS: Symmetric cortical medullary uptake and excretion without hydronephrosis seen bilaterally. S imple appearing partially exophytic 2.1 cm cyst laterally right kidney midpole level is present. BOWEL: Oral contrast reaches level of the distal transverse colon. No suspicious small or large bowel dilatation. Few diverticula in the left colon. More prominent diverticula in the sigmoid colon. No c onvincing CT evidence for acute diverticulitis. UTERUS/ADNEXA: Anteverted uterus. Curvilinear Calcification in right ovary axial image 99 is redemons trated. No new adnexal masses. LYMPH NODES: No greater than 1cm abdominal or pelvic lymph nodes are appreciated. OSSEOUS STRUCTURES: Dextroconvex scoliosis centered at L2-L3 level is redemonstrated. Moderate multil evel disc space narrowing and vacuum disc phenomenon centered at the L2-L3 and L3-L4 levels. Moderate to severe disc space narrowing and vacuum disc phenomenon at right L5 L6 level. Transitional type L6 vertebrae redemonstrated. Multilevel facet arthropathy in the mid to lower lumbar spine. OTHER: New moderate diffuse subcutaneous edema over the lower abdomen and pelvis. Exophytic lesion co ntaining fat over the right pelvic region axial image 106 which demonstrated favoring exophytic subcu taneous lipoma IMPRESSION: Improved biliary dilatation after metallic biliary stent insertion. Pancreas remains abno rmal with 2 distinct areas of pancreatic ductal dilatation. Cannot exclude areas of neoplasm at both levels. Persistent peripheral groundglass nodules greatest in the lower lungs difficult to actually m easure change could reflect metastatic disease versus septic emboli. Former is favored. Just over 1.0 cm lateral left hepatic lobe liver lesion should be followed, metastatic focus cannot be excluded.
== END | disposition home or self-care (01) ==
LOC: RADCTMAIN 12:17
PROVIDERS: ATTEND Internal Medicine Hematology & Oncology
DX: C25.0 Malignant neoplasm of head of pancreas (principal); K76.9 Liver disease, unspecified; I10 Essential (primary) hypertension; K86.89 Other specified diseases of pancreas; R91.8 Other nonspecific abnormal finding of lung field
CPT/HCPCS: 82565; 84520; 71260; 74177; 36415; Q9967

== ENCOUNTER → 2022-12-02 | Outpatient (CLI) | payer MEDICARE, BC ==
[2022-12-02 13:24] LABS: African American GFR (CKD) >90 (>60 ml/min/1.73 sqM); Blood Urea Nitrogen 11 mg/dL (7-17); Non-African American GFR(CKD) 85 (>60 ml/min/1.73 sqM)
--- NOTE | 2022-12-02 15:45 | CT ---
EXAMINATION TYPE: CT ChestAbdPelvis w con DATE OF EXAM: 12/02/2022 COMPARISON: 10/06/2022 HISTORY: Pancreatic CA CT DLP: 579.2 mGycm Automated exposure control for dose reduction was used. CONTRAST: CT scan of the chest, abdomen and pelvis is performed with Oral Contrast and with IV Contrast, patien t injected with 100cc mL of Isovue 300. FINDINGS: CT chest: There has been marked interval worsening in the appearance of the chest. The multiple pulmonary brook s seen on the prior study have significantly increased in number and size. There is been interval dev elopment of small to moderate right pleural effusion and left pleural effusion. The great vessels the chest are normal and there is no mediastinal, hilar or axillary adenopathy. No focal osseous abnormalities are seen within the bony thorax. CT abdomen and pelvis: There is persistent pneumobilia and there is an internal biliary stent unchanged in position. Ill-defined 2 cm lesion in the left lobe of liver is stable. No new liver lesions are seen. Cystic structures in the body and tail the pancreas are again seen. Uncertain whether these represent cystic masses or focal dilatations of the pancreatic duct. Spleen is normal and there are no adrenal masses. The kidneys excrete contrast promptly and symmetrically is no solid renal mass or hydronephrosis. The re is no retroperitoneal adenopathy or hemorrhage in the caliber the abdominal aorta is normal. The bowel loops are normal in caliber is no dilatation or obstruction. No inflammatory changes are id entified in the bowel wall or mesentery. There is no free intraperitoneal air or fluid. There is no pelvic mass, free fluid, abscess or adenopathy. No focal osseous abnormalities are seen. There is marked diffuse increased density in the subcutaneous fat in the bowel wall and pelvis and to a lesser extent within the mesentery. The findings are consistent with anasarca significantly worse than on prior study.. IMPRESSION: 1.Marked interval worsening of the metastatic disease to the lung with marked increase in the pulmona ry masses, both number and size. 2. Interval development of a small left pleural effusion and a [id number] right pleural effusi on. 3. Stable internal biliary stent with pneumobilia. 4. Stable ill-defined lesion in the left lobe of liver. 5. Stable appearance of the pancreas described above. 6. Interval worsening of the diffuse soft tissue edema consistent with anasarca.
== END | disposition home or self-care (01) ==
LOC: RADCTMAIN 12:40
PROVIDERS: ATTEND Internal Medicine Hematology & Oncology
DX: C25.0 Malignant neoplasm of head of pancreas (principal); C78.00 Secondary malignant neoplasm of unspecified lung; J90 Pleural effusion, not elsewhere classified; K76.89 Other specified diseases of liver; I10 Essential (primary) hypertension; R60.0 Localized edema; Z96.89 Presence of other specified functional implants
CPT/HCPCS: 82565; 84520; 71260; 74177; 36415; Q9967